=== PATIENT | female | born 1945 | race Caucasian/White ===

== ENCOUNTER 2021-07-04 12:08 | Outpatient (CLI) | payer OTHER, SELFPAY ==
--- NOTE | ~2021-07-04 | DEXA_ITS ---
Bone Density Report Name: BRYN WOOD Age: 76 Sex: Female Ethnicity: White Date of : 1945 Indication: postmenopausal; screening for osteoporosis; prior fracture; hysterectomy; Referring Provider: Yissel, Anna Allen Study: Bone densitometry was performed. Exam Date: July 04, 2021 Accession number: [id number] Bone Density: Region BMD T-score Z-score Classification AP Spine(L1-L4) 0.796 -2.3 0.1 Osteopenia Femoral Neck (Left) 0.490 -3.2 -1.1 Osteoporosis Total Hip (Left) 0.586 -2.9 -1.1 Osteoporosis World Health Organization criteria for BMD impression classify patients as: Normal (T-score at or above -1.0), Osteopenia (T-score between -1.0 and -2.5), or Osteoporosis (T-score at or below -2.5). 10-year Fracture Risk: FRAX not reported because: Some T-score for Spine Total or Hip Total or Femoral Neck at or below -2.5 Prior hip or vertebral fracture Clinical Information Provided by Patient: Have had a previous hip or vertebral fracture Has had a low trauma fracture Smokes Has used the following medications: Vitamin D Has the following medical conditions: Hysterectomy Patient maximum height was 62 Menopause Age: 34 No regular weight bearing exercise Drinks caffeinated beverages Onset of menses at age 19 Number of children 0 Impression: The patient has established osteoporosis, based on the Left Femoral Neck T-score and the existence of a prior fracture. The patient has risk factors, including: smoking, previous fracture. Discussion: HIGH RISK OF FRACTURE. BONE DENSITY IS UNDESIRABLY LOW AT ONE OR MORE SKELETAL SITES, CONSISTENT WITH POSTMENOPAUSAL OSTEOPOROSIS. This patient's lowest T-score, in a patient who has previously fractured, meets the World Health Organization's (WHO) criteria for severe osteoporosis. In untreated patients, the risk of osteoporotic fracture increases approximately two-fold for each 1.0 SD decrease in T-score. Low bone density is not the only risk factor for fracture; also consider factors such as patient's age, frailty or poor health, risk of falling, risk of injury, previous osteoporotic fracture, family history of osteoporosis, cigarette smoking, low body weight, etc. Not everyone with low bone mineral density has osteoporosis; osteomalacia and other metabolic bone disorders should also be considered. Patients who have osteoporosis should be evaluated for specific diseases and conditions (secondary causes) that may cause or contribute to bone loss. The [place] [employer] of Clinical Endocrinologists (AACE) and National Osteoporosis Foundation (NOF) recommend pharmacologic intervention for all postmenopausal women with a previous hip or vertebral fracture and a T-score in this range. The patient should follow a healthful lifestyle (good nutrition with adequate calcium and vitamin D, and appropriate weight-b
== END 2021-07-04 12:09 | disposition home or self-care (01) ==
LOC: CHSIMG 12:14
PROVIDERS: PCP Family Medicine; Visit Provider Physician Assistant
DX: Z78.0 Asymptomatic menopausal state (principal)
CPT/HCPCS: 77080

== ENCOUNTER 2023-03-16 07:02 | Outpatient (NON) | payer OTHER, SELFPAY ==
[2023-03-16 07:39] LABS: Anion Gap 7 mmol/L (8-16); Blood Urea Nitrogen 41 mg/dL (7-18); Calcium 9.1 mg/dL (8.5-10.1); Carbon Dioxide 30 mmol/L (21-32); Chloride 102 mmol/L (98-108); Estimated Glomerular Filt Rate 57; Glucose 185 mg/dL (70-99); Osmolality Calculated 303 mOsm/kg (285-295); Sodium 139 mmol/L (136-145)
== END 2023-03-16 07:03 | disposition home or self-care (01) ==
PROVIDERS: Visit Provider Family Medicine
DX: I50.9 Heart failure, unspecified (principal); E11.9 Type 2 diabetes mellitus without complications; I10 Essential (primary) hypertension
CPT/HCPCS: 36415; 80048

== ENCOUNTER 2023-04-06 06:29 | Outpatient (NON) | payer OTHER, SELFPAY ==
[2023-04-06 06:53] LABS: Basophils Absolute Auto 0.06 K/mm3 (0.00-0.10); Basophils Percent Auto 0.7 % (0.0-1.0); Eosinophils Absolute Auto 0.34 K/mm3 (0.02-0.50); Eosinophils Percent Auto 3.9 % (1.0-6.0); Hematocrit 33.7 % (35.0-42.0); Hemoglobin 10.1 g/dL (11.7-13.8); Immature Granulocyte Absolute 0.05 K/mm3 (0.00-0.00); Immature Granulocyte Percent A 0.6 % (0.0-0.0); Lymphocytes Absolute Auto 2.06 K/mm3 (1.10-4.50); Lymphocytes Percent Auto 23.8 % (18.0-42.0); Mean Corpuscular Hemoglobin 26.2 pg (27.0-31.0); Mean Corpuscular Volume 87.3 fL (78.0-102.0); Mean Platelet Volume 10.2 fl (9.2-11.8); Monocytes Absolute Auto 0.75 K/mm3 (0.10-0.90); Monocytes Percent Auto 8.7 % (2.0-11.0); Neutrophils Absolute Auto 5.4 K/mm3 (1.7-7.2); Neutrophils Percent Auto 62.3 % (50.0-70.0); Platelet Count Result 325 K/mm3 (150-420); Red Blood Count 3.86 M/mm3 (4.20-5.40); Red Cell Distribution Width 16.2 % (11.6-14.4); White Blood Count 8.6 K/mm3 (4.8-10.8)
== END 2023-04-06 06:30 | disposition home or self-care (01) ==
LOC: CHSLAB 06:31
PROVIDERS: Visit Provider Family Medicine
DX: D64.9 Anemia, unspecified (principal); I48.91 Unspecified atrial fibrillation; I50.9 Heart failure, unspecified; E11.9 Type 2 diabetes mellitus without complications
CPT/HCPCS: 36415; 85025

== ENCOUNTER 2023-04-20 06:47 | Outpatient (NON) | payer OTHER, SELFPAY ==
[2023-04-20 07:28] LABS: Basophils Absolute Auto 0.03 K/mm3 (0.00-0.10); Basophils Percent Auto 0.5 % (0.0-1.0); Eosinophils Absolute Auto 0.07 K/mm3 (0.02-0.50); Eosinophils Percent Auto 1.1 % (1.0-6.0); Hematocrit 32.9 % (35.0-42.0); Hemoglobin 10.2 g/dL (11.7-13.8); Immature Granulocyte Absolute 0.03 K/mm3 (0.00-0.00); Immature Granulocyte Percent A 0.5 % (0.0-0.0); Lymphocytes Absolute Auto 1.24 K/mm3 (1.10-4.50); Lymphocytes Percent Auto 19.8 % (18.0-42.0); Mean Corpuscular Hemoglobin 26.5 pg (27.0-31.0); Mean Corpuscular Volume 85.5 fL (78.0-102.0); Monocytes Absolute Auto 0.63 K/mm3 (0.10-0.90); Monocytes Percent Auto 10.1 % (2.0-11.0); Neutrophils Absolute Auto 4.3 K/mm3 (1.7-7.2); Platelet Count Result 288 K/mm3 (150-420); Red Blood Count 3.85 M/mm3 (4.20-5.40); Red Cell Distribution Width 16.7 % (11.6-14.4); White Blood Count 6.3 K/mm3 (4.8-10.8)
[2023-04-20 08:00] LABS: Alanine Aminotransferase 20 U/L (14-59); Albumin Level 2.5 g/dL (3.4-5.0); Alkaline Phosphatase 67 U/L (46-116); Anion Gap 13 mmol/L (8-16); Aspartate Amino Transferase 21 U/L (15-37); Bilirubin,Total 0.2 mg/dL (0.00-1.00); Blood Urea Nitrogen 20 mg/dL (7-18); Calcium 8.8 mg/dL (8.5-10.1); Carbon Dioxide 22 mmol/L (21-32); Chloride 107 mmol/L (98-108); Estimated Glomerular Filt Rate > 60; Glucose 91 mg/dL (70-99); Osmolality Calculated 296 mOsm/kg (285-295); Potassium 3.9 mmol/L (3.5-5.1); Sodium 142 mmol/L (136-145); Total Protein 6.7 g/dL (6.4-8.2)
== END 2023-04-20 06:48 | disposition home or self-care (01) ==
LOC: CHSLAB 06:56
PROVIDERS: Visit Provider Family Medicine
DX: I48.91 Unspecified atrial fibrillation (principal); I50.9 Heart failure, unspecified; E11.9 Type 2 diabetes mellitus without complications
CPT/HCPCS: 36415; 80053; 83036; 85025

== ENCOUNTER 2023-04-22 10:36 | Outpatient (NON) | payer OTHER, SELFPAY ==
[2023-04-22 10:59] LABS: Influenza Control Valid (Valid)
== END 2023-04-22 10:37 | disposition home or self-care (01) ==
LOC: CHSLAB 10:38
PROVIDERS: Visit Provider Family Medicine
DX: R05.9 Cough, unspecified (principal); R53.1 Weakness; R53.83 Other fatigue; R50.9 Fever, unspecified
CPT/HCPCS: 87804

== ENCOUNTER 2023-06-12 06:50 | Outpatient (NON) | payer OTHER, SELFPAY ==
[2023-06-12 08:07] LABS: Hemoglobin A1C 7.9 % (<5.7)
[2023-06-12 08:19] LABS: Alanine Aminotransferase 19 U/L (14-59); Albumin Level 2.9 g/dL (3.4-5.0); Alkaline Phosphatase 95 U/L (46-116); Anion Gap 9 mmol/L (8-16); Aspartate Amino Transferase 12 U/L (15-37); Bilirubin,Total 0.3 mg/dL (0.00-1.00); Blood Urea Nitrogen 29 mg/dL (7-18); Calcium 8.8 mg/dL (8.5-10.1); Carbon Dioxide 24 mmol/L (21-32); Chloride 107 mmol/L (98-108); Estimated Glomerular Filt Rate > 60; Glucose 216 mg/dL (70-99); Osmolality Calculated 302 mOsm/kg (285-295); Potassium 4.2 mmol/L (3.5-5.1); Sodium 140 mmol/L (136-145); Total Protein 6.6 g/dL (6.4-8.2)
[2023-06-12 09:11] LABS: Basophils Absolute Auto 0.04 K/mm3 (0.00-0.10); Basophils Percent Auto 0.5 % (0.0-1.0); Eosinophils Percent Auto 3.8 % (1.0-6.0); Hematocrit 36.5 % (35.0-42.0); Hemoglobin 11.2 g/dL (11.7-13.8); Immature Granulocyte Absolute 0.04 K/mm3 (0.00-0.00); Immature Granulocyte Percent A 0.5 % (0.0-0.0); Lymphocytes Absolute Auto 1.95 K/mm3 (1.10-4.50); Lymphocytes Percent Auto 24.5 % (18.0-42.0); Mean Corpuscular HGB Conc 30.7 g/dL (32.0-36.0); Mean Corpuscular Hemoglobin 26.3 pg (27.0-31.0); Mean Corpuscular Volume 85.7 fL (78.0-102.0); Mean Platelet Volume 10.8 fl (9.2-11.8); Monocytes Absolute Auto 0.59 K/mm3 (0.10-0.90); Monocytes Percent Auto 7.4 % (2.0-11.0); Neutrophils Percent Auto 63.3 % (50.0-70.0); Platelet Count Result 244 K/mm3 (150-420); Red Blood Count 4.26 M/mm3 (4.20-5.40); Red Cell Distribution Width 18.1 % (11.6-14.4)
== END 2023-06-12 06:51 | disposition home or self-care (01) ==
LOC: CHSLAB 06:52
PROVIDERS: Visit Provider Family Medicine
DX: D64.9 Anemia, unspecified (principal); I48.91 Unspecified atrial fibrillation; I50.9 Heart failure, unspecified; E11.9 Type 2 diabetes mellitus without complications
CPT/HCPCS: 36415; 80053; 83036; 84443; 85025

== ENCOUNTER 2023-07-15 06:55 | Outpatient (NON) | payer OTHER, SELFPAY ==
[2023-07-15 07:45] LABS: Anion Gap 9 mmol/L (4-12); Blood Urea Nitrogen 23 mg/dL (7-18); Calcium 8.9 mg/dL (8.5-10.1); Carbon Dioxide 27 mmol/L (21-32); Chloride 107 mmol/L (98-108); Cholesterol 166 mg/dL (0-200); Estimated Glomerular Filt Rate > 60; Glucose 183 mg/dL (70-99); HDL Direct 71 mg/dL (40-60); LDL Cholesterol Calculated 80 mg/dL (<130); Osmolality Calculated 304 mOsm/kg (285-295); Potassium 4.1 mmol/L (3.5-5.1); Sodium 143 mmol/L (136-145); Triglycerides 76 mg/dL (0-150)
== END 2023-07-15 06:56 | disposition home or self-care (01) ==
LOC: CHSLAB 06:57
PROVIDERS: Visit Provider Family Medicine
DX: I48.91 Unspecified atrial fibrillation (principal); I50.9 Heart failure, unspecified; E11.9 Type 2 diabetes mellitus without complications
CPT/HCPCS: 36415; 80048; 80061

== ENCOUNTER 2024-07-06 08:45 | Outpatient (CLI) | payer BC, SELFPAY ==
[2024-07-06 09:15] LABS: Hemoglobin A1C 9.2 % (<5.7)
== END 2024-07-06 08:46 | disposition home or self-care (01) ==
LOC: CHSLAB 08:46
PROVIDERS: PCP Family Medicine; Visit Provider Family Medicine
DX: E11.9 Type 2 diabetes mellitus without complications (principal)
CPT/HCPCS: 36415; 83036

== ENCOUNTER 2024-08-08 15:04 | Outpatient (NON) | payer BC, SELFPAY ==
[2024-08-08 15:44] LABS: Creatinine Urine 24.72 mg/dL (40-278); MALB Creatinine Ratio 57.4 mg/g (0-30); Microalbumin Urine Random 14.2 mg/L
== END 2024-08-08 15:05 | disposition home or self-care (01) ==
LOC: CHSLAB 15:06
PROVIDERS: PCP Family Medicine; Visit Provider Family Medicine
DX: E11.9 Type 2 diabetes mellitus without complications (principal)
CPT/HCPCS: 82043

== ENCOUNTER 2024-09-27 09:59 | Outpatient (CLI) | payer BC, SELFPAY ==
--- NOTE | ~2024-09-27 | XR_ITS ---
Clinical Indication: CHF, cough PA and lateral views of the chest: Comparison: None Findings: The lungs are clear, without evidence of focal consolidation or pleural effusion. Possible COPD. Cardiomediastinal silhouette is within normal limits. Bones and soft tissues are unremarkable. Impression: Clear lungs. Suspected COPD. Reviewed, dictated and finalized at location . Impression: Clear lungs. Suspected COPD.
[2024-09-27 10:15] LABS: Hematocrit 38.7 % (35.0-42.0); Mean Corpuscular Hemoglobin 27.4 pg (27.0-31.0); Mean Corpuscular Volume 88.4 fL (78.0-102.0); Mean Platelet Volume 11.2 fl (9.2-11.8); Platelet Count Result 247 K/mm3 (150-420); Red Blood Count 4.38 M/mm3 (4.20-5.40); Red Cell Distribution Width 14.6 % (11.6-14.4); White Blood Count 8.1 K/mm3 (4.8-10.8)
[2024-09-27 10:23] LABS: Alanine Aminotransferase 14 U/L (6-35); Albumin Level 3.5 g/dL (3.5-5.1); Alkaline Phosphatase 116 U/L (38-126); Anion Gap 5 mmol/L (4-12); Aspartate Amino Transferase 23 U/L (14-36); Bilirubin,Total 0.4 mg/dL (0.2-1.3); Blood Urea Nitrogen 17 mg/dL (7-17); Calcium 9.2 mg/dL (8.4-10.2); Carbon Dioxide 26 mmol/L (22-30); Chloride 109 mmol/L (98-107); Estimated Glomerular Filt Rate > 60; Glucose 142 mg/dL (65-110); Osmolality Calculated 293 mOsm/kg (285-295); Potassium 4.3 mmol/L (3.4-5.0); Sodium 140 mmol/L (137-145); Total Protein 6.5 g/dL (6.3-8.2)
[2024-09-27 10:34] LABS: NT Pro B Type Natriuretic Pept 991 pg/mL (19.9-100); Troponin I < 0.012 ng/mL (0.000-0.034)
== END 2024-09-27 10:00 | disposition home or self-care (01) ==
LOC: CHSIMG 10:01
PROVIDERS: PCP Family Medicine; Visit Provider Family Medicine
DX: I50.9 Heart failure, unspecified (principal)
CPT/HCPCS: 36415; 71046; 80053; 83880; 84484; 85027

== ENCOUNTER 2024-10-12 06:20 | Outpatient (NON) | payer BC, SELFPAY ==
--- OUTSIDE RECORDS SUMMARY | 2024-10-12 06:28 | XMS_ITS | Encounter Summary ---
Author Organization [facility] Address [address] [place] [address] Care Team Providers Care Package Dyer Name Role Phone Iris Rodriguez MD Primary Care Provider [phone] Tutu Thibodeaux MD Unavailable [phone] Uli Christensen MD Unavailable [phone] Serena Jara MD Unavailable Ravindra Herrera DO Primary Care Provider [phone] Encounter Details Date Type Department Care Team (Late st Contact Info) Description 01/03/2019 Hospital Orders Only [facility] [address] [place] [address] Iris Rodriguez MD [address] [place] [address] Social History Tobacco Use Types Packs/Day Years Used Date Smoking Tobacco: Never Assessed Comments Unknown Sex and Gender Information Value Date Recorded Sex Assigned at Not on file Legal Sex Female 9:18 PM CDT Gender Identity Not on file Sexual Orientation Not on file documented as of this encounter Plan of Treatment Upcoming Encounters Date Type Department Care Team (Late st Contact Info) Description 06/27/2025 10:00 AM CDT Appointment [facility] [address] [place] [address] Serena Jara MD [address] [place], [place] [id number] 07/11/2025 12:00 PM CDT Office Visit [facility] [place] [address] Serena Jara MD [address] [place] [address] documented as of this encounter Visit Diagnoses Not on filedocumented in this encounter Additional Health Concerns Infection Onset Date Last Indicated Resolved Time C. difficile 01/03/2023 01/03/2023 documented as of this encounter Care Teams Package Dyer Relationship Specialty Start Date End Date Iris Rodriguze MD [address] [place] [id number] PCP - General FAMILY PRACTICE 01/09/19 07/06/24 Ravindra Herrera DO [address] [place] [address] PCP - General FAMILY PRACTICE 07/07/24 Tutu Thibodeaux MD [address] [place] [phone] EP Associate Drafter CLINICAL CARDIAC ELECTROPHYSIOLOGY 02/18/23 Uli Christensen MD [address] [facility] [address] [place] [address] Physician INTERVENTIONAL CARDIOLOGY 05/13/2308/10 Serena Jara MD [address] [place] [address] Consulting Physician CARDIOVASCULAR DISEASE 08/23/23 documented as of this encounter
--- OUTSIDE RECORDS SUMMARY | 2024-10-12 06:28 | XMS_ITS | Clinical Summary ---
Author Organization [facility] Address [address] [place] [address] Care Team Providers Care Filler Shredder Name Role Phone Tutu Thibodeaux MD Unavailable Serena Jara MD Unavailable Ravindra Herrera DO Primary Care Provider [phone] Allergies Active Allergy Reactions Criticality Noted Date Comments Erythromycin Hives,Diarrhea Low 01/09/2019 Tetracycline Hives,Diarrhea Low 01/09/2019 Medications glipiZIDE 10 MG tabletIndicatio ns:Diabetes Mellitus Take 1 tablet (10 mg total) by mouth 2 (two) times daily before meals. Indications: Diabetes Take two tabs in the a.m and one tab in the p.m 11/07/19 21 Active lovastatin 10 MG tabletIndicatio ns:Hyperlipidem ia Take 1 tablet (10 mg total) by mouth daily with supper. Indications: High Amount of Fats in the Blood 11/07/19 21 Active vitamin D3, cholecalciferol , 10 mcg tabletIndicatio ns:Vitamin and/or Mineral Deficiency Take 1 tablet (400 Units total) by mouth 2 (two) times daily. Indications: Vitamin and/or Mineral Deficiency 11/07/19 21 Active Acetaminophen (TYLENOL ARTHRITIS PAIN OR) Active JARDIANCE 25 MG tablet Take 1 tablet (25 mg total) by mouth daily. 12/18/19 23 Active apixaban (ELIQUIS) 5 MG tablet Take 1 tablet (5 mg total) by mouth 2 (two) times daily. Active bisacodyl EC (DULCOLAX) 5 MG Tab EC tablet Take 1 tablet (5 mg total) by mouth nightly as needed. Bowel prep Active insulin lispro protamine-insul in lispro (HUMALOG 50/50) (50-50) 100 UNIT/ML Suspension injection Inject into the skin see administration instructions. Active metoprolol succinate ER (TOPROL-XL) 25 MG 24 hr tablet Take 0.5 tablets (12.5 mg total) by mouth daily. Active spironolactone (ALDACTONE) 25 MG tablet Take 0.5 tablets (12.5 mg total) by mouth daily. Active Senna (SENOKOT) 8.6 MG tablet Take 1 tablet (8.6 mg total) by mouth daily. Active Nutritional Supplements (CLICK ESPRESSO PROTEIN DRINK OR) Active aspirin EC (ECOTRIN) 81 MG tablet Take 1 tablet (81 mg total) by mouth daily. 30 tablet 11 07/08/19 25 Active furosemide (LASIX) 40 MG tablet Take 1 tablet (40 mg total) by mouth daily. FOR 4 DAYS. 4 tablet 07/08/19 25 Active nitroglycerin (NITROLINGUAL) 0.4 MG/SPRAY spray Place 1 spray (0.4 mg total) under the tongue every 5 (five) minutes as needed for Chest Pain. 1 g 6 07/08/19 25 Active potassium chloride CR (KLOR-CON M) 20 MEQ tablet Take 1 tablet (20 mEq total) by mouth daily. FOR 4 DAYS. 4 tablet 07/08/19 25 Active COMPRESSION STOCKINGS, DME,Indications :Edema, unspecified type B/L Knee High 15-20 mmHg Dx: I83.893 1 Package 2 07/08/19 25 Active Active Problems Problem Noted Date Diagnosed Date LV dysfunction 02/27/2023 Overview (02/27/2023): Lvef approx 20% dec 2022 Essential (primary) hypertension 02/21/2023 Nonrheumatic mitral valve regurgitation 02/20/20 Overview (02/27/2023): Moderate dec 2022 Nonrheumatic tricuspid valve regurgitation 02/19 Anemia 01/02/2023 Thrombocytopenia 01/02/2023 Atrial fibrillation ([facility]) 01/01/2023 Coronary artery disease invo lving [place] coronary artery of [place] heart with unstable angina pectoris ([facility]) 01/01/2023 S/P drug eluting coronary stent placement 2022 Frailty 01/01/2023 NSTEMI (non-ST elevated myoc ardial infarction) ([facility]) 12/28/2022 Senile osteoporosis 01/03/2019 Immunizations Immunization Administration Dates Next Due Influenza Adult (Generic) 02/24/2018 PFIZER COVID-19 (ORIGINAL FO RMULATION, PURPLE CAP) mRNA, LNP-S, PF, 30 MCG/0.3 ML DOSE 01/10/2021,07/03/2020,06/05/2020 Family History Medical History Relation Comments Valvular heart disease Father Relation Status Comments Father Social History Tobacco Use Types Packs/Day Years Used Date Smoking Tobacco: Former Cigarettes Q uit: 12/2022 Smokeless Tobacco: Never Tobacco Cessation:Counseling Given: Not Answered Humiliation, Afraid, Rape, and Kick questionnair e Answer Date Recorded Within the last year, have y ou been afraid of your partner or ex-partner? No 12/28/2022 Within the last year, have y ou been humiliated or emotionally abused in other ways by your partner or ex-partner? No Within the last year, have y ou been kicked, hit, slapped, or otherwise physically hurt by your partner or ex-partner? No 12/28/2022 Within the last year, have y ou been raped or forced to have any kind of sexual activity by your partner or ex-partner? No 12/28/2022 Social Connection and Isolat ion Panel [NHANES] Answer Date Recorded In a typical week, how many times do you talk on the phone with family, friends, or neighbors? More than three times a week 12/28/2022 How often do you get togethe r with friends or relatives? More than three times a week 12/28/2022 How often do you attend chur ch or confucianist services? Never 12/28/2022 Do you belong to any clubs o r organizations such as yazidism groups, unions, fraternal or athletic groups, or school groups? No 12/28/2022 How often do you attend meet ings of the clubs or organizations you belong to? Never 12/28/2022 Are you , , di vorced, , never , or living with a partner? Never 12/28/2022 AUDIT-C Answer Date Recorded Q1: How often do you have a drink containing alcohol? Never 12/28/2022 Q2: How many drinks containi ng alcohol do you have on a typical day when you are drinking? Patient does not drink Q3: How often do you have si x or more drinks on one occasion? Never 12/28/2022 Overall Financial Resource Strain (CARDIA) Answe r Date Recorded How hard is it for you to pa y for the very basics like food, housing, medical care, and heating? Not hard at all 12/28/2022 [facility] - Occupational Stress Questionnaire Answer Date Recorded Do you feel stress - tense, restless, nervous, or anxious, or unable to sleep at night because your mind is troubled all the time - these days? Rather much 12/28/2022 Exercise Vital Sign Answer Date Recorde d On average, how many days pe r week do you engage in moderate to strenuous exercise (like a brisk walk)? 0 days 12/28/2022 On average, how many minutes do you engage in exercise at this level? 0 min 12/28/2022 Hunger Vital Sign Answer Date Recorded Within the past 12 months, y ou worried that your food would run out before you got the money to buy more. Never true 12/29/19 23 Within the past 12 months, t he food you bought just didn't last and you didn't have money to get more. Never true 12/28/2022 PRAPARE - Transportation Answer Date Re corded In the past 12 months, has l ack of transportation kept you from medical appointments or from getting medications? No 12/11 In the past 12 months, has l ack of transportation kept you from meetings, work, or from getting things needed for daily living? No 12/28/2022 Housing Stability Vital Sign Answer Jitendra e Recorded In the last 12 months, was t here a time when you were not able to pay the mortgage or rent on time? No 12/28/2022 In the last 12 months, how many places have you lived? 1 12/28/2022 In the last 12 months, was t here a time when you did not have a steady place to sleep or slept in a retirement (including now)? No 12/28/2022 Comments No Sex and Gender Information Value Date Recorded Sex Assigned at Not on file Legal Sex Female 9:18 PM CDT Gender Identity Not on file Sexual Orientation Not on file Last Filed Vital Signs Vital Sign Reading Time Taken Comments Blood Pressure 109/44 07/07/2024 11:57 AM CDT Pulse 59 07/07/2024 11:57 AM CDT Temperature 36.7 C (98.1 F) 04/12/2023 8:15 AM SHORE HAND DREDGE OR BARGE Respiratory Rate 16 07/07/2024 11:57 AM CDT Oxygen Saturation 98% 07/07/2024 11:57 AM CDT Inhaled Oxygen Concentration - - Weight 54 kg (119 lb) 12/03/2023 2:35 PM CDT Height 152.4 cm (5') 07/07/2024 11:57 AM CDT Body Mass Index 23.24 12/03/2023 2:35 PM CDT Plan of Treatment Upcoming Encounters Date Type Department Care Team (Late st Contact Info) Description 06/27/2025 10:[address] [facility] [address] [place] [address] Serena Jara MD [address] [place] [address] 07/11/2025 12:00 PM CDT Office Visit [facility] [address] [place] [address] Serena Jara MD [address] [place] [address] Health Maintenance Due Date Last Done Comments ASCVD Statin 1945 Hepatitis C 1964 DTaP, Tdap and Td Vaccines ( 1 - Tdap) 1965 Pneumococcal Vaccine: 50+ Years (1 of 2 - PCV) 1965 Zoster Vaccines (1 of 2) 1996 Dexa Scan (General) 2011 RSV Immunization or 60+ Years (1 - 1-dose 75+ series) 2021 COVID-19 Vaccine (4 - 4- 5 season) 2023 01/10/2021, 07/03/2020, 06/05/2020 ASCVD LDL 12/29/2023 12/28/2022 Meningococcal B Vaccine Aged Out No l onger eligible based on patient's age to complete this topic Meningococcal Vaccine Aged Out No brett evelia eligible based on patient's age to complete this topic RSV Immunizations Under 20 Months Aged Out No longer eligible b ased on patient's age to complete this topic Goals Goal Patient Goal Type Associated Problems Recent Progress Patient-Stated? Author Family - family caregiver with be involved in care transitions and discharge planning Lifestyle No Melida Childs RN Medical Devices Implanted Type Area Buffer Nickel Device Identifier Shelf Expiration Date Model / Serial / Lot Biotronik Osiro [place] 2.75mm X 13mm-12/28/2022 Implanted:Qty: 1 on 12/28/2022 by Uli Christensen MD Stent Coronary LAD BIOTRONIK 02/06/2023 [id number] / / [id number] Procedures Procedure Name Priority Date/Time Associated Diagnosis Comments LIPID PANEL Routine 12/28/2022 2:14 AM CDT from Last 3 Months or Most Recently Relevant to Health Maintenance Results * LIPID PANEL (12/28/2022 2:14 AM CDT) CHOLESTEROL 178 MG/DL 12/28/2022 3:[address] [facility] Comment:DESIRABLE: <200 TRIGLYCERIDES 125 MG/DL 12/28/2022 3:[address] [facility] Comment:<150 NORMAL HDL 59 >49 MG/DL 12/28/2022 3:[address] [facility] LDL (CALCULATED) 94 MG/DL 12/29/19 3:[address] [facility] Comment:<100 OPTIMAL VLDL CALCULATION 25 MG/DL 12/29/19 3:[address] [facility] Comment:REFERENCE RANGE NOT ESTABLISHED CHOL/HDL RATIO 3.0 12/28/2022 3:[address] [facility] Comment:REFERENCE RANGE NOT ESTABLISHED LDL/HDL 1.6 12/28/2022 3:[address] [facility] Comment:REFERENCE RANGE NOT ESTABLISHED NON HDL CHOLESTEROL 119 MG/DL 12/28/2022 3:[address] [facility] Comment:REFERENCE RANGE NOT ESTABLISHED 12/28/2022 2:14 AM CDT Iban Murillo MD LABORATORY Final Result [facility] [address] [place] [address], [id number] from Last 3 Months or Most Recently Relevant to Health Maintenance Additional Health Concerns Infection Onset Date Last Indicated C. difficile 01/03/2023 01/03/2023 Insurance [facility] Advance Directives Documents on File Type Date Recorded Patient Breaster Expl anation Advance Directives and Livin g Will 04/13/2023 7:51 AM * Full Code (Latest Code Status on File) Date Activated Date Inactivated Comments 12/30/2022 2:35 AM 01/08/2023 3:28 PM * Full Code Date Activated Date Inactivated Comments 11/06/2020 10:36 PM 12/27/2022 9:11 PM Care Teams Filler Shredder Relationship Specialty Start Date End Date Ravindra Herrera DO [address] [place] [address] PCP - General FAMILY PRACTICE 07/07/24 Tutu Thibodeaux MD [address] [place] [address] EP Head Banquet Waiter/Waitress CLINICAL CARDIAC ELECTROPHYSIOLOGY 02/18/23 Serena Jara MD [address] [place] [address] Consulting Physician CARDIOVASCULAR DISEASE 08/23/23
--- OUTSIDE RECORDS SUMMARY | 2024-10-12 06:28 | XMS_ITS | Encounter Summary ---
Author Organization [facility] Address [address] [place] [address] Care Team Providers Care Tanker Serviceman Name Role Phone Iris Rodriguez MD Primary Care Provider [phone] Tutu Thibodeaux MD Unavailable [phone] Uli Christensen MD Unavailable [phone] Serena Jara MD Unavailable Ravindra Herrera DO Primary Care Provider [phone] Encounter Details Date Type Department Care Team (Late st Contact Info) Description 01/11/2023 Hospital Follow-up Call [facility] [address] [place] [address] Kimmie Layton RN Social History Tobacco Use Types Packs/Day Years Used Date Smoking Tobacco: Every Day Cigarettes Smokeless Tobacco: Never Humiliation, Afraid, Rape, and Kick questionnair e [...] often do you attend chur ch or hoahaoism services? Never 12/28/2022 Do you belong to any clubs o r organizations such as tenriism groups, unions, fraternal or athletic groups, or [...] and heating? Not hard at all 12/28/2022 [facility] Occupat ional Health - Occupational Stress [...] place to sleep or slept in a chcf (including now)? No 12/28/2022 Comments No Sex and Gender Information Value Date Recorded Sex Assigned at Not on file Legal Sex Female 9:18 PM CDT Gender Identity Not on file Sexual Orientation Not on file documented as of this encounter Functional Status * Are you deaf or do you have serious difficulty hearing Answer Date of Assessment Author Status No 12/28/2022 2:00 AM ANISAT Jacki Schwarz RN Active * Are you blind or do you have serious difficulty seeing, even when wearing glasses? Answer Date of Assessment Author Status No 12/28/2022 2:00 AM ANISAT Jacki Schwarz RN Active * Do you have serious difficulty walking or climbing stairs? Answer Date of Assessment Author Status Yes 12/28/2022 2:00 AM Jacki High RN Active * Do you have difficulty dressing or bathing? Answer Date of Assessment Author Status No 12/28/2022 2:00 AM ANISAT Jacki Schwarz RN Active * Because of a physical, mental, or emotional condition, do you have difficulty doing errands alone such as visiting a doctor's office or shopping? Answer Date of Assessment Author Status Yes 12/28/2022 2:00 AM Jacki High RN Active documented as of this encounter Mental Status * Because of a physical, mental, or emotional condition, do you have serious difficulty concentrating, remembering, or making decisions? Answer Entry Date Author Status Yes 12/28/2022 2:00 AM Jacki High RN Active documented in this encounter Plan of Treatment Upcoming Encounters Date Type Department Care Team (Late st Contact Info) Description 06/27/2025 10:00 AM CDT Appointment [facility] [address] [place] [address] Serena Jara MD [address] [place], [place] [phone] 07/11/2025 12:00 PM CDT Office Visit [facility] [address] [place] [phone] Serena Jara MD [address] [place], [place] [address] documented as of this encounter Goals Goal Patient Goal Type Associated Problems Recent Progress Patient-Stated? Author Family - family caregiver with be involved in care transitions and discharge planning Lifestyle No Melida Childs RN documented as of this encounter Visit Diagnoses Not on filedocumented in this encounter Additional Health Concerns Infection Onset Date Last Indicated Resolved Time C. difficile 01/03/2023 01/03/2023 documented as of this encounter Care Teams Tanker Serviceman Relationship Specialty Start Date End Date Iris Rodriguez MD [address] [place] [address] PCP - General FAMILY PRACTICE 01/09/19 07/06/24 Ravindra Herrera DO [address] [place] [address] PCP - General FAMILY PRACTICE 07/07/24 Tutu Thibodeaux MD [address] [place] [address] EP Tire Mounter CLINICAL CARDIAC ELECTROPHYSIOLOGY 02/18/23 Uli Christensen MD [address] [facility] [address] [place] [address] Physician INTERVENTIONAL CARDIOLOGY 2/1/24 5/1 2/24 Serena Jara MD [address] [place] [address] Consulting Physician CARDIOVASCULAR DISEASE 08/23/23 documented as of this encounter
[2024-10-12 06:38] LABS: Add Urine Microscopic? YES; Appearance Urine Clear (Clear); Glucose Urine UA 3+ (Negative); Leukocyte Esterase Ur 2+ (Negative); Nitrate Urine Negative (Negative); Specific Grav Ur 1.015 (1.010-1.020)
== END 2024-10-12 06:21 | disposition home or self-care (01) ==
LOC: CHSLAB 06:26
PROVIDERS: PCP Family Medicine; Visit Provider Family Medicine
DX: N39.0 Urinary tract infection, site not specified (principal)
CPT/HCPCS: 81001; 87086

== ENCOUNTER 2024-10-18 12:14 | Outpatient (CLI) | payer BC, SELFPAY ==
--- NOTE | ~2024-10-18 | US_ITS ---
Pelvic ultrasound. Clinical History: Postmenopausal bleeding Technique: Realtime transabdominal scanning of the pelvis was performed. Color flow Doppler and Doppl er spectral analysis were performed. Findings: The uterus is absent, compatible prior hysterectomy. Neither ovary seen. No adnexal mass seen. There is no evidence of free fluid in the cul de sac. Impression: Status post hysterectomy. No pelvic mass or free fluid seen. Reviewed, dictated and finalized at location . Impression: Status post hysterectomy. No pelvic mass or free fluid seen.
--- OUTSIDE RECORDS SUMMARY | 2024-10-18 12:17 | XMS_ITS | Encounter Summary ---
Author Organization [facility] Address [address] [place] [address] Care Team Providers Care Dentist Name Role Phone Iris Rodriguez MD Primary Care Provider [phone] Tutu Thibodeaux MD Unavailable [phone] Uli Christensen MD Unavailable [phone] Serena Jara MD Unavailable Ravindra Herrera DO Primary Care Provider [phone] Encounter Details Date Type Department Care Team (Late st Contact Info) Description 01/11/2023 Hospital Follow-up Call [facility] [address] [place] [address] Kimmie Layton RN Social History [...] often do you attend chur ch or restorationist services? Never 12/28/2022 Do you belong to any clubs o r organizations such as samaritan groups, unions, fraternal or athletic groups, or [...] and heating? Not hard at all 12/28/2022 [facility] Occupat ional [facility] - [...] place to sleep or slept in a residential (including now)? No 12/28/2022 Comments No Sex [...] Info) Description 06/27/2025 10:00 AM CDT Appointment [facility] [address] [place] [address] Serena Jara MD [address] [place], [place] [address] 07/11/2025 12:00 PM CDT Office Visit [facility] [address] [place] [phone] Serena Jara MD [address] [place], [place] [phone] documented as of this encounter Goals Goal [...] documented as of this encounter Care Teams Dentist Relationship Specialty Start Date End Date Iris Rodriguez MD [address] [place] [address] PCP - General FAMILY PRACTICE 01/09/19 07/06/24 Ravindra Herrera DO [address] [place] [address] PCP - General FAMILY PRACTICE 07/07/24 Tutu Thibodeaux MD [address] [place] [address] EP Animal Behaviourist CLINICAL CARDIAC ELECTROPHYSIOLOGY 02/18/23 Uli Christensen MD [address] [facility] [address] [place] [address] Physician INTERVENTIONAL CARDIOLOGY 2/1/24 5/1 2/24 Serena Jara MD [address] [place] [address] Consulting Physician CARDIOVASCULAR DISEASE 08/23/23 documented as of this encounter
--- OUTSIDE RECORDS SUMMARY | 2024-10-18 12:17 | XMS_ITS | Encounter Summary ---
Author Organization [facility] Address [address] [place] [address] Care Team Providers Care Flake Cutter Operator Name Role Phone Iris Rodriguez MD Primary Care Provider [phone] Tutu Thibodeaux MD Unavailable [phone] Uli Christensen MD Unavailable [phone] Serena Jara MD Unavailable Ravindra Herrera DO Primary Care Provider [phone] Encounter Details Date Type Department Care Team (Late st Contact Info) Description 01/03/2019 Hospital Orders Only [facility] [address] [place] [address] Iris Rodriguez MD [address] [place] [address] Social History Tobacco Use Types Packs/Day [...] Info) Description 06/27/2025 10:00 AM CDT Appointment [facility] [address] [place] [address] Serena Jara MD [address] [place], [place] [id number] 07/11/2025 12:00 PM CDT Office Visit [facility] [place] [address] Serena Jara MD [address] [place] [address] documented as of this encounter Visit Diagnoses Not on filedocumented in this encounter Additional Health Concerns Infection Onset Date Last Indicated Resolved Time C. difficile 01/03/2023 01/03/2023 documented as of this encounter Care Teams Flake Cutter Operator Relationship Specialty Start Date End Date Iris Rodriguez MD [address] [place] [phone] PCP - General FAMILY PRACTICE 01/09/19 07/06/24 Ravindra Herrera DO [address] [place] [address] PCP - General FAMILY PRACTICE 07/07/24 Tutu Thibodeaux MD [address] [place] [phone] EP Airplane Pilot Commercial CLINICAL CARDIAC ELECTROPHYSIOLOGY 02/18/23 Uli Christensen MD [address] [facility] [address] [place] [address] Physician INTERVENTIONAL CARDIOLOGY 05/13/2308/10 Serena Jara MD [address] [place] [address] Consulting Physician CARDIOVASCULAR DISEASE 08/23/23 documented as of this encounter
--- OUTSIDE RECORDS SUMMARY | 2024-10-18 12:17 | XMS_ITS | Clinical Summary ---
Author Organization [facility] Address [address] [place] [address] Care Team Providers Care Photographic Artist Name Role Phone Tutu Thibodeaux MD Unavailable [phone] Serena Jara MD Unavailable Ravindra Herrera DO Primary Care Provider [phone] Allergies Active Allergy Reactions Criticality Noted Date [...] 02/19 Anemia 01/02/2023 Thrombocytopenia 01/02/2023 Atrial fibrillation ([facility]) 01/01/2023 Coronary artery disease invo lving [place] coronary artery of [place] heart with unstable angina pectoris ([facility]) 01/01/2023 S/P drug eluting coronary stent placement 2022 Frailty 01/01/2023 NSTEMI (non-ST elevated myoc ardial infarction) ([facility]) 12/28/2022 Senile osteoporosis 01/03/2019 Immunizations Immunization Administration [...] any clubs o r organizations such as mandaen groups, unions, fraternal or athletic groups, or [...] and heating? Not hard at all 12/28/2022 [facility] of Occupat ional Health - Occupational Stress [...] place to sleep or slept in a long-term (including now)? No 12/28/2022 Comments No Sex [...] 36.7 C (98.1 F) 04/12/2023 8:15 AM RN FACULTY Respiratory Rate 16 07/07/2024 11:57 AM CDT [...] AM CDT [address] [facility] [address] [place] [address] Serena Jara MD [address] [place] [address] 07/11/2025 12:00 PM CDT Office Visit [facility] [address] [place] [address] Serena Jara MD [address] [place] [address] Health Maintenance Due Date Last Done Comments [...] Childs RN Medical Devices Implanted Type Area Codifier Device Identifier Shelf Expiration Date Model / Serial / Lot Biotronik Osiro Babb 2.75mm X 13mm-12/28/2022 Implanted:Qty: 1 on 12/28/2022 by Uli Christensen MD Stent Coronary LAD BIOTRONIK 02/06/2023 [id number] / / [id number] Procedures Procedure Name Priority Date/Time Associated Diagnosis Comments LIPID PANEL Routine 12/28/2022 2:14 AM CDT from Last 3 Months or Most Recently Relevant to Health Maintenance Results * LIPID PANEL (12/28/2022 2:14 AM CDT) CHOLESTEROL 178 MG/DL 12/28/2022 3:[address] [facility] Comment:DESIRABLE: <200 TRIGLYCERIDES 125 MG/DL 12/28/2022 3:[address] [facility] Comment:<150 NORMAL HDL 59 >49 MG/DL 12/28/2022 3:[address] [facility] LDL (CALCULATED) 94 MG/DL 12/29/19 3:[address] [facility] Comment:<100 OPTIMAL VLDL CALCULATION 25 MG/DL 12/29/19 3:[address] [facility] Comment:REFERENCE RANGE NOT ESTABLISHED CHOL/HDL RATIO 3.0 12/28/2022 3:[address] [facility] Comment:REFERENCE RANGE NOT ESTABLISHED LDL/HDL 1.6 12/28/2022 3:[address] [facility] Comment:REFERENCE RANGE NOT ESTABLISHED NON HDL CHOLESTEROL 119 MG/DL 12/28/2022 3:[address] [facility] Comment:REFERENCE RANGE NOT ESTABLISHED 12/28/2022 2:14 AM CDT Iban Murillo MD LABORATORY Final Result [facility] [address] [place] [address], [id number] from Last 3 Months or Most Recently Relevant to Health Maintenance Additional Health Concerns Infection Onset Date Last Indicated C. difficile 01/03/2023 01/03/2023 Insurance [facility] Advance Directives Documents on File Type Date Recorded Patient Lifter Driver Expl anation Advance Directives and Livin g Will 04/13/2023 7:51 AM * Full Code (Latest Code Status on File) Date Activated Date Inactivated Comments 12/30/2022 2:35 AM 01/08/2023 3:28 PM * Full Code Date Activated Date Inactivated Comments 11/06/2020 10:36 PM 12/27/2022 9:11 PM Care Teams Photographic Artist Relationship Specialty Start Date End Date Ravindra Herrera DO [address] [place] [address] PCP - General FAMILY PRACTICE 07/07/24 Tutu Thibodeaux MD [address] [place] [address] EP Polysom Tech CLINICAL CARDIAC ELECTROPHYSIOLOGY 02/18/23 Serena Jara MD [address] [place] [address] Consulting Physician CARDIOVASCULAR DISEASE 08/23/23
== END 2024-10-18 12:15 | disposition home or self-care (01) ==
LOC: CHSIMG 12:15
PROVIDERS: PCP Family Medicine; Visit Provider Family Medicine
DX: N95.0 Postmenopausal bleeding (principal); R35.0 Frequency of micturition; Z90.710 Acquired absence of both cervix and uterus
CPT/HCPCS: 76856

== ENCOUNTER 2024-10-22 11:10 | Outpatient (CLI) | payer BC, SELFPAY ==
--- NOTE | ~2024-10-22 | XR_ITS ---
Left foot Technique: AP, oblique, and lateral views were obtained. Clinical History: Injury Findings: No acute fracture or dislocation is seen. Osseous alignment is anatomic. There are mild sca ttered degenerative changes of the interphalangeal joints of the toes. Short fourth metatarsal noted. There is prominent dorsal soft tissue swelling of the forefoot. Impression: No acute abnormality. Prominent soft tissue swelling of the dorsal forefoot. Reviewed, dictated and finalized at location . Impression: No acute abnormality. Prominent soft tissue swelling of the dorsal forefoot.
--- OUTSIDE RECORDS SUMMARY | 2024-10-22 11:13 | XMS_ITS | Clinical Summary ---
Author Organization [facility] Address [address] [place] [address] Care Team Providers Care Rigger Supervisor Name Role Phone Tutu Thibodeaux MD Unavailable [phone] Serena Jara MD Unavailable Ravindra Herrera DO Primary Care Provider [phone] Allergies Active Allergy Reactions Criticality Noted Date [...] 01/02/2023 Atrial fibrillation ([facility]) 01/01/2023 Coronary artery disease invo lving [place] coronary artery of [place] heart with unstable angina pectoris ([facility]) 01/01/2023 S/P drug eluting coronary stent placement 2022 Frailty 01/01/2023 NSTEMI (non-ST elevated myoc ardial infarction) ([facility]) 12/28/2022 Senile osteoporosis 01/03/2019 Immunizations Immunization [...] often do you attend chur ch or gnosticism services? Never 12/28/2022 Do you belong to any clubs o r organizations such as scientology groups, unions, fraternal or athletic groups, or [...] and heating? Not hard at all 12/28/2022 [facility] of Occupat ional Health - Occupational Stress [...] place to sleep or slept in a halfway (including now)? No 12/28/2022 Comments No Sex [...] 36.7 C (98.1 F) 04/12/2023 8:15 AM VENDING ROUTE SERVICER Respiratory Rate 16 07/07/2024 11:57 AM CDT [...] AM CDT Appointment [facility] [address] [place] [address] Serena Jara MD [address] [place] [address] 07/11/2025 12:00 PM CDT Office Visit [facility] [address] [place] [address] Serena Jara MD [address] [place] [address] Health Maintenance Due Date Last Done Comments [...] Childs RN Medical Devices Implanted Type Area Manager Mall Device Identifier Shelf Expiration Date Model / Serial / Lot Biotronik Osiro [place] 2.75mm X 13mm-12/28/2022 Implanted:Qty: 1 on 12/28/2022 by Uli Christensen MD Stent Coronary LAD BIOTRONIK 02/06/2023 [id number] / / [id number] Procedures Procedure Name Priority Date/Time Associated Diagnosis Comments LIPID PANEL Routine 12/28/2022 2:14 AM CDT from Last 3 Months or Most Recently Relevant to Health Maintenance Results * LIPID PANEL (12/28/2022 2:14 AM CDT) CHOLESTEROL 178 MG/DL 12/28/2022 3:05 AM CDT [facility] Comment:DESIRABLE: <200 TRIGLYCERIDES 125 MG/DL 12/28/2022 3:05 AM CDT [facility] Comment:<150 NORMAL HDL 59 >49 MG/DL 12/28/2022 3:05 AM CDT [facility] LDL (CALCULATED) 94 MG/DL 12/29/19 3:05 AM CDT [facility] Comment:<100 OPTIMAL VLDL CALCULATION 25 MG/DL 12/29/19 3:05 AM CDT [facility] Comment:REFERENCE RANGE NOT ESTABLISHED CHOL/HDL RATIO 3.0 12/28/2022 3:05 AM CDT [facility] Comment:REFERENCE RANGE NOT ESTABLISHED LDL/HDL 1.6 12/28/2022 3:05 AM CDT [facility] Comment:REFERENCE RANGE NOT ESTABLISHED NON HDL CHOLESTEROL 119 MG/DL 12/28/2022 3:05 AM CDT [facility] Comment:REFERENCE RANGE NOT ESTABLISHED 12/28/2022 2:14 AM CDT Iban Murillo MD LABORATORY Final Result [facility] [address] [place] [address], [id number] from Last 3 Months or Most Recently Relevant to Health Maintenance Additional Health Concerns Infection Onset Date Last Indicated C. difficile 01/03/2023 01/03/[address] [facility] Advance Directives Documents on File Type Date Recorded Patient Packaging Clerk Expl anation Advance Directives and Livin g Will 04/13/2023 7:51 AM * Full Code (Latest Code Status on File) Date Activated Date Inactivated Comments 12/30/2022 2:35 AM 01/08/2023 3:28 PM * Full Code Date Activated Date Inactivated Comments 11/06/2020 10:36 PM 12/27/2022 9:11 PM Care Teams Rigger Supervisor Relationship Specialty Start Date End Date Ravindra Herrera DO [address] [place] [address] PCP - General FAMILY PRACTICE 07/07/24 Tutu Thibodeaux MD [address] [place] [address] EP Binder Stripper Hand CLINICAL CARDIAC ELECTROPHYSIOLOGY 02/18/23 Serena Jara MD [address] [place] [address] Consulting Physician CARDIOVASCULAR DISEASE 08/23/23
--- OUTSIDE RECORDS SUMMARY | 2024-10-22 11:13 | XMS_ITS | Encounter Summary ---
Author Organization [facility] Address [address] [place] [address] Care Team Providers Care Applications Analyst Name Role Phone Iris Rodriguez MD Primary Care Provider [phone] Tutu Thibodeaux MD Unavailable [phone] Uli Christensen MD Unavailable [phone] Serena Jara MD Unavailable Ravindra Herrera DO Primary Care Provider [phone] Encounter Details Date Type Department Care Team (Late st Contact Info) Description 01/11/2023 Hospital Follow-up Call [facility] [address] [place] [address] Kimmie Layton RN Social History [...] often do you attend chur ch or pentecostal services? Never 12/28/2022 Do you belong to any clubs o r organizations such as yarsani groups, unions, fraternal or athletic groups, or [...] and heating? Not hard at all 12/28/2022 [facility] of Occupat ional Health - Occupational Stress [...] place to sleep or slept in a fci (including now)? No 12/28/2022 Comments No Sex [...] Author Status Yes 12/28/2022 2:00 AM Jacki Hihg RN Active * Do you have difficulty [...] Info) Description 06/27/2025 10:00 AM CDT Appointment [facility] [address] [place] [address] Serena Jara MD [address] [place], [place] [address] 07/11/2025 12:00 PM CDT Office Visit [facility] [address] [place] [phone] Serena Jara MD [address] [place], [place] [address] documented as of this encounter Goals Goal [...] documented as of this encounter Care Teams Applications Analyst Relationship Specialty Start Date End Date Iris Rodriguez MD [address] [place] [address] PCP - General FAMILY PRACTICE 01/09/19 07/06/24 Ravindra Herrera DO [address] [place] [address] PCP - General FAMILY PRACTICE 07/07/24 Tutu Thibodeaux MD [address] [place] [address] EP Integrated Circuit Layout Designer CLINICAL CARDIAC ELECTROPHYSIOLOGY 02/18/23 Uli Christensen MD [address] [facility] [address] [place] [address] Physician INTERVENTIONAL CARDIOLOGY 2/1/24 5/1 2/24 Serena Jara MD [address] [place] [address] Consulting Physician CARDIOVASCULAR DISEASE 08/23/23 documented as of this encounter
--- OUTSIDE RECORDS SUMMARY | 2024-10-22 11:13 | XMS_ITS | Encounter Summary ---
Author Organization [facility] Address [address] [place] [address] Care Team Providers Care Water Trainer Name Role Phone Iris Rodriguez MD Primary Care Provider [phone] Tutu Thibodeaux MD Unavailable [phone] Uli Christensen MD Unavailable [phone] Serena Jara MD Unavailable Ravindra Herrera DO Primary Care Provider [phone] Encounter Details Date Type Department Care Team (Late st Contact Info) Description 01/03/2019 Hospital Orders Only [facility] [address] [place] [address] Iris Rodriguez MD [address] [place] [address] Social History Tobacco Use Types Packs/Day [...] Info) Description 06/27/2025 10:00 AM CDT Appointment [facility] [address] [place] [address] Serena Jara MD [address] [place], [place] [phone] 07/11/2025 12:00 PM CDT Office Visit [facility] [place] [address] Serena Jara MD [address] [place] [address] documented as of this encounter Visit Diagnoses Not on filedocumented in this encounter Additional Health Concerns Infection Onset Date Last Indicated Resolved Time C. difficile 01/03/2023 01/03/2023 documented as of this encounter Care Teams Water Trainer Relationship Specialty Start Date End Date Iris Rodriguez MD [address] [place] [address] PCP - General FAMILY PRACTICE 01/09/19 07/06/24 Ravindra Herrera DO [address] [place] [address] PCP - General FAMILY PRACTICE 07/07/24 Tutu Thibodeaux MD [address] [place] [phone] EP Nut Roaster Helper CLINICAL CARDIAC ELECTROPHYSIOLOGY 02/18/23 Uli Christensen MD [address] [facility] [address] [place] [address] Physician INTERVENTIONAL CARDIOLOGY 05/13/2308/10 Serena Jara MD [address] [place] [address] Consulting Physician CARDIOVASCULAR DISEASE 08/23/23 documented as of this encounter
== END 2024-10-22 11:11 | disposition home or self-care (01) ==
LOC: CHSIMG 11:12
PROVIDERS: PCP Family Medicine; Visit Provider Family Medicine
DX: S90.32XA Contusion of left foot, initial encounter (principal); M79.89 Other specified soft tissue disorders
CPT/HCPCS: 73630